=== PATIENT | female | born 1955 | race Caucasian/White ===

== ENCOUNTER 2021-11-25 18:19 | Emergency (ER) | payer MEDICARE, SELFPAY ==
[2021-11-25 18:25] VITALS: BP 163/95; PULSE 54; RESP 14; TEMP 36.4; O2SAT 96; BMI 34.3
--- NOTE | 2021-11-25 18:36 | XRR_ITS ---
PROCEDURE INFORMATION: Exam: XR Chest Exam date and time: 11/25/2021 7:03 PM Age: 66 years old Clinical indication: Dyspnea; Additional info: TIA TECHNIQUE: Imaging protocol: Radiologic exam of the chest. Views: 1 view. COMPARISON: No relevant prior studies available. FINDINGS: Lungs: Emphysematous changes. Pleural spaces: Unremarkable. No pleural effusion. No pneumothorax. Heart/Mediastinum: Cardiomegaly. Bones/joints: Unremarkable. XR/XR chest 1V portable [id number] IMPRESSION: 1. Negative for infiltrate. 2. Cardiomegaly. 3. Emphysematous changes.
--- NOTE | 2021-11-25 18:36 | CTR_ITS ---
PROCEDURE INFORMATION: Exam: CT Head Without Contrast Exam date and time: 11/25/2021 6:54 PM Age: 66 years old Clinical indication: Altered mental status/memory loss; Additional info: TIA TECHNIQUE: Imaging protocol: Computed tomography of the head without contrast. Radiation optimization: All CT scans at this facility use at least one of these dose optimization techniques: automated exposure control; mA and/or kV adjustment per patient size (includes targeted exams where dose is matched to clinical indication); or iterative reconstruction. COMPARISON: No relevant prior studies available. RADIATION DOSE METRICS: Total DLP (mGy-cm): 1051.28 FINDINGS: Brain: Large amount of diffuse white matter disease likely reflecting chronic microvascular ischemic changes. Chronic right frontal infarct. Cerebral ventricles: No ventriculomegaly. Paranasal sinuses: Visualized sinuses are unremarkable. No fluid levels. Mastoid air cells: Visualized mastoid air cells are well aerated. Bones/joints: Unremarkable. No acute fracture. Soft tissues: Unremarkable. CT/CT head wo con* [id number] IMPRESSION: 1. Negative for intracranial hemorrhage or mass effect. 2. Large amount of diffuse white matter disease likely reflecting chronic microvascular ischemic changes. 3. Chronic right frontal infarct.
[2021-11-25 18:49] LABS: Glucose Point of Care 161 mg/dL (70-110)
--- NOTE | 2021-11-25 19:03 | ED_ITS ---
HPI - Altered Mental Status General: Chief Complaint: Altered Mental Status Stated Complaint: slurred speech, hx of dementia Time Seen by Provider: 11/25/21 18:31 History of Present Illness: 66-year-old female presents with a confusional episode is now resolved. Patient reports that she was seen at the dinner table when she just could not remember how to eat and can get her hands up to her mouth. She also had some associated slurred speech symptoms were resolved prior to arrival to the ER.. Patient does report a history of TIAs. Upon arrival to ER she has no symptoms. Patient's family is also concerned that maybe she has a urinary tract infection she has a history of UTIs causing similar symptoms Review of Systems Const: Denies: fever(s) or chills Eyes: Denies: change in vision or blurry vision ENMT: Denies: throat pain or ear or mastoid pain Card: Denies: chest pain or palpitations Resp: Denies: dyspnea, productive cough or wheezing GI: Denies: abdominal pain, nausea or vomiting Musc: Denies: neck pain or back pain Neuro: Reports: Slurred speech present and other (Please see HPI) Physical Exam Const: COMMON NORMALS: no acute distress, patient oriented x3 and alert Eye: COMMON NORMALS: Equal, round and reactive pupils present and EOMs intact bilaterally PUPIL: Yes Equal, round and reactive pupils present Resp: COMMON NORMALS: normal respiratory effort, No use of accessory muscles and clear to auscultation bilaterally AUSCULTATION: clear to auscultation bilaterally Cardio: COMMON NORMALS: regular rate and regular rhythm RATE: regular rate RHYTHM: regular rhythm GI: COMMON NORMALS: Soft to palpation and non-tender PALPATION: Yes Soft to palpation Extremity: COMMON NORMALS: full ROM and capillary refill normal Neuro: COMMON NORMALS: patient oriented x3, CN's II-XII intact bilaterally, moves all extremities, no focal motor deficits and no sensory deficits noted SENSORIUM/ORIENTATION: Yes alert OTHER: NIH 0 Psych: COMMON NORMALS: mental status grossly normal, Normal thought process present, cooperative and speech normal SPEECH: Yes normal speech THOUGHT PROCESS: Normal thought process present Skin: COMMON NORMALS: no rashes or lesions noted GENERAL SKIN EXAM: no rashes or lesions noted Course Vital Signs: Vital signs: Vital Signs Temperature 97.6 F 11/25/21 18:25 Pulse Rate 49 L 11/25/21 19:59 Respiratory Rate 17 11/25/21 19:59 Blood Pressure 151/59 11/25/21 19:59 Pulse Oximetry 95 11/25/21 19:59 Oxygen Delivery Me thod 11/25/21 19:59 MDM - Altered Mental Status Medical Decision Making Patient with UTI that is likely resulting in her symptoms. Patient is allergic to sulfa so I will start her on Keflex. Patient stable and discharged home Lab Data : 11/25/21 20:08 11/25/21 20:08 Radiology Impressions Chest X-Ray 11/25/21 18:36 IMPRESSION: 1. Negative for infiltrate. 2. Cardiomegaly. 3. Emphysematous changes. Head CT 11/25/21 18:36 IMPRESSION: 1. Negative for intracranial hemorrhage or mass effect. 2. Large amount of diffuse white matter disease likely reflecting chronic microvascular ischemic changes. 3. Chronic right frontal infarct. Laboratory Results WBC 10.2 10^3/uL (4.0-10.0) H 11/25/21 20:08 RBC 4.20 10^6/uL (4.1-5.3) 11/25/21 20:08 Hgb 12.7 g/dL (11.5-15.3) 11/25/21 20:08 Hct 39.4 % (37.0-47.0) 11/25/21 20:08 MCV 93.8 fl (81-99) 11/25/21 20:08 MCH 30.2 pg (28.0-34.0) 11/25/21 20:08 MCHC 32.2 g/dL (30.0-36.0) 11/25/21 20:08 RDW 12.5 % (12.1-15.1) 11/25/21 20:08 Plt Count 200 10^3/cmm (130-400) 11/25/21 20:08 MPV 11.7 fL (7.4-10.4) H 11/25/21 20:08 Neut % (Auto) 71.5 % 11/25/21 20:08 Lymph % (Auto) 22.3 % 11/25/21 20:08 Haines % (Auto) 4.2 % 11/25/21 20:08 Eos % (Auto) 1.3 % 11/25/21 20:08 Baso % (Auto) 0.4 % 11/25/21 20:08 Neut # (Auto) 7.30 10^3/uL (1.8-7.7) 11/25/21 20:08 Lymph # (Auto) 2.3 10^3/uL (0.8-4.8) 11/25/21 20:08 Haines # (Auto) 0.4 10^3/uL (0.2-0.9) 11/25/21 20:08 Eos # (Auto) 0.1 10^3/uL (0.0-0.8) 11/25/21 20:08 Baso # (Auto) 0.0 10^3/uL (0.0-0.1) 11/25/21 20:08 Nucleated RBC % (auto) 0 % 11/25/21 20:08 Nucleated RBCs # 0.0 /100WBC 11/25/21 20:08 Sodium 138 mmol/L (136-145) 11/25/21 20:08 Potassium 4.6 mmol/L (3.5-5.1) 11/25/21 20:08 Chloride 103 mmol/L (98-107) 11/25/21 20:08 Carbon Dioxide 25 mmol/L (22-29) 11/25/21 20:08 Anion Gap 14.6 (5-19) 11/25/21 20:08 BUN 20 mg/dL (8-23) 11/25/21 20:08 Creatinine 1.2 mg/dL (0.5-0.9) H 11/25/21 20:08 GFR Calculation 44.8 mL/min (90-130) L 11/25/21 20:08 Glucose 143 mg/dL (65-115) H 11/25/21 20:08 POC Glucose 161 mg/dL (70-110) H 11/25/21 18:46 Calculated Osmolality 291 mOsm/kg (285-295) 11/25/21 20:08 Calcium 8.9 mg/dL (8.5-10.5) 11/25/21 20:08 Magnesium 1.9 mg/dL (1.7-2.3) 11/25/21 20:08 Total Bilirubin 0.4 mg/dL (0.15-1.2) 11/25/21 20:08 AST 13 U/L (0-32) 11/25/21 20:08 ALT 10 U/L (0-33) 11/25/21 20:08 Alkaline Phosphatase 151 U/L (35-105) H 11/25/21 20:08 Total Protein 6.8 g/dL (6.6-8.7) 11/25/21 20:08 Albumin 3.5 g/dL (3.5-5.2) 11/25/21 20:08 Globulin 3.3 g/dL (1.3-4.6) 11/25/21 20:08 Urine Color Yellow (Yellow) 11/25/21 20:35 Urine Appearance Cloudy (CLEAR) 11/25/21 20:35 Urine pH 6 (5-7) 11/25/21 20:35 Ur Specific Celina 1.020 (1.005-1.030) 11/25/21 20:35 Urine Protein 1+ (Negative) H 11/25/21 20:35 Urine Glucose (UA) Norm (Normal) 11/25/21 20:35 Urine Ketones Negative (Negative) 11/25/21 20:35 Urine Blood 2+ (Negative) H 11/25/21 20:35 Urine Nitrate Positive (Negative) H 11/25/21 20:35 Urine Bilirubin Neg (Negative) 11/25/21 20:35 Urine Urobilinogen Neg mg/dL (Negative) 11/25/21 20:35 Ur Leukocyte Esterase 2+ (Negative) H 11/25/21 20:35 Urine RBC 5-10 /hpf (0-2) H 11/25/21 20:35 Urine WBC 55-80 /hpf (0-5) H 11/25/21 20:35 Ur Squamous Epith Cells 0-4 /hpf (0-5) H 11/25/21 20:35 Amorphous Sediment Not Reportable 11/25/21 20:35 Urine Bacteria 3+ /hpf (NONE) H 11/25/21 20:35 Discharge Plan Discharge Patient Disposition: Home Clinical Impression: Acute cystitis with hematuria Condition: Stable Prescriptions: New cephalexin 500 mg capsule 500 mg PO Q6H 10 Days Qty: 40 0RF Discharge Orders: Discharge ED (Routine); Ordered 11/25/21 Ordered By: Raul López Referrals: Nick Arteaga FNP [Nurse Practitioner] - Discharge Diet: Usual diet Discharge Activity: Resume usual activity Patient Instructions: Opioid Safety, Pain Management, Urinary Tract Infection in Older Adults (ED) Activity Restrictions/Additional Instructions: Follow-up with your primary care provider in 5 days for recheck of your urine Coding Level of Care Code ED Save All Operator for Gita Fwd Exam Comprehensive
[2021-11-25 19:59] VITALS: BP 151/59; PULSE 49; RESP 17; O2SAT 95
[2021-11-25 20:13] LABS: Basophils % 0.4 %; Eosinophils # 0.1 10^3/uL (0.0-0.8); Eosinophils % 1.3 %; Hematocrit 39.4 % (37.0-47.0); Hemoglobin 12.7 g/dL (11.5-15.3); Lymphocytes # 2.3 10^3/uL (0.8-4.8); Lymphocytes % 22.3 %; Mean Corpuscular HGB Conc 32.2 g/dL (30.0-36.0); Mean Corpuscular Hemoglobin 30.2 pg (28.0-34.0); Mean Corpuscular Volume 93.8 fl (81-99); Mean Platelet Volume 11.7 fL (7.4-10.4); Monocytes # 0.4 10^3/uL (0.2-0.9); Monocytes % 4.2 %; Neutrophils % 71.5 %; Nucleated Red Blood Cells % 0 %; Platelet Count 200 10^3/cmm (130-400); Red Cell Distribution Width 12.5 % (12.1-15.1); White Blood Count 10.2 10^3/uL (4.0-10.0)
[2021-11-25 20:36] LABS: Alanine Aminotransferase 10 U/L (0-33); Albumin Level 3.5 g/dL (3.5-5.2); Alkaline Phosphatase 151 U/L (35-105); Aspartate Amino Transferase 13 U/L (0-32); Blood Urea Nitrogen 20 mg/dL (8-23); Calcium 8.9 mg/dL (8.5-10.5); Carbon Dioxide 25 mmol/L (22-29); Chloride 103 mmol/L (98-107); Globulin 3.3 g/dL (1.3-4.6); Glomerular Filtration Rate 44.8 mL/min (90-130); Glucose 143 mg/dL (65-115); Magnesium 1.9 mg/dL (1.7-2.3); Osmolality Calculated 291 mOsm/kg (285-295); Sodium 138 mmol/L (136-145); Total Bilirubin 0.4 mg/dL (0.15-1.2); Total Protein 6.8 g/dL (6.6-8.7)
[2021-11-25 20:44] LABS: Anion Gap 14.6 (5-19); Potassium 4.6 mmol/L (3.5-5.1)
[2021-11-25 20:57] LABS: Urine Appearance Cloudy (CLEAR); Urine Color Yellow (Yellow); pH Urine 6 (5-7)
[2021-11-25 20:58] LABS: Add Urine Culture? Yes; Add Urine Microscopic? YES; Bacteria Urine 3+ /hpf; Bilirubin Urine Neg (Negative); Blood Urine 2+ (Negative); Glucose Urine UA Norm (Normal); Ketones Urine Negative (Negative); Leukocyte Esterase Urine 2+ (Negative); Nitrate Urine Positive (Negative); Protein Urine 1+ (Negative); Squamous Epithelial Cell Urine 0-4 /hpf (0-5); Urobilinogen Urine Neg (Negative); WBC Urine 55-80 /hpf (0-5)
[2021-11-25 21:25] VITALS: BP 175/66; PULSE 54; RESP 16; O2SAT 96
[2021-11-25] MEDS: cephALEXin 500 mg Capsule PO (21:25)
== END 2021-11-25 21:26 | disposition home or self-care (01) ==
PROVIDERS: Emergency Provider Student in an Organized Health Care Education/Training Program
DX: N30.01 Acute cystitis with hematuria (principal)
CPT/HCPCS: 36415; 36416; 70450; 71045; 80053; 81001; 82962; 83735; 85025; 87077; 87086; 87186; 99285